=== PATIENT | male | born 1950 | race Caucasian/White ===

== ENCOUNTER 2017-11-25 14:05 | Emergency (ER) | payer MEDICARE ==
[2017-11-25] MEDS ORDERED: Bacitracin Zinc 1 Packet ONE (14:30)
== END 2017-11-25 14:39 | disposition home or self-care (01) ==
LOC: BURERS 14:05
DX: S61.012A Laceration without foreign body of left thumb without damage to nail, initial encounter (principal); I10 Essential (primary) hypertension; F17.210 Nicotine dependence, cigarettes, uncomplicated; W29.8XXA Contact with other powered hand tools and household machinery, initial encounter
CPT/HCPCS: 12001

== ENCOUNTER 2021-12-04 07:55 | Inpatient (IN) | payer MEDICARE, OTHER ==
[2021-12-04] MEDS ORDERED: methylPREDNISolone Sod Succ/PF 125 MG/2 ML VIAL ONE (08:03)
[2021-12-04] MEDS ORDERED: Magnesium 2 GM/50 ML BAG (IN WATER) ONE (08:12)
[2021-12-04] MEDS ORDERED: Albuterol Sulfate 2.5 mg/0.5 ml Neb ONE ×2 (08:12→08:43)
[2021-12-04 08:28] LABS: #Basophils 0.2 thou/uL (0.0-0.2); #Eosinphils 0.3 thou/uL (0.0-0.7); #Lymphocytes 1.6 thou/uL (1.20-3.40); #Monocytes 1.2 thou/uL (0.11-0.59); %Basophils 1.5 % (0.0-1.0); %Lymphocytes 10.1 % (21.0-51.0); %Monocytes 7.7 % (0.0-10.0); %Neutrophils 78.6 % (42.0-75.0); Mean Corpuscular HGB CONC 33.7 g/dL (32.0-36.0); Mean Corpuscular Hemoglobin 33.7 pg (27.0-31.0); Mean Platelet Volume 8.7 fL (7.4-10.4); Platelet Count 224 thou/uL (130-400); RBC Distribution Width 12.3 % (11.5-14.5); Red Blood Cell (RBC) Count 4.74 mill/uL (4.70-6.10); White Blood Cell (WBC) Count 15.3 thou/uL (4.8-10.8)
[2021-12-04 08:36] LABS: ALT (SGPT) 19 U/L (8-55); AST (SGOT) 25 U/L (5-34); Albumin 4.7 g/dL (3.4-4.8); Alkaline Phosphatase 88 U/L (40-110); Anion Gap 17 mmol/L (10-20); BUN (Urea Nitrogen) 10 mg/dL (8.4-25.7); Bilirubin, Total 0.7 mg/dL (0.2-1.2); Calc. Creatinine Clearance 0 mL/min (70-130); Calcium 9.3 mg/dL (7.8-10.44); Carbon Dioxide 23 mmol/L (23-31); Chloride 104 mmol/L (98-107); Globulin 3.6 g/dL (2.4-3.5); Glucose 141 mg/dL (80-115); Potassium 4.5 mmol/L (3.5-5.1); Protein, Total 8.3 g/dL (5.8-8.1); Sodium 139 mmol/L (136-145)
[2021-12-04 08:54] LABS: CKMB 4.6 ng/mL (0-6.6)
[2021-12-04 12:36] LABS: SARS-CoV-2 NAA Rapid Test Not Detected (NotDetected)
[2021-12-04] MEDS ORDERED: Ondansetron ODT 4 MG TAB SL PRN ×2 (13:00→14:58)
[2021-12-04] MEDS ORDERED: Ondansetron PF 4 MG/2 ML Vial IVP PRN (13:00)
[2021-12-04] MEDS: Albuterol Sulfate 2.5 mg/3 ml Neb NEB SCH ×3 (13:51→21:51)
[2021-12-04] MEDS ORDERED: Acetaminophen/Codeine 30-300mg Tablet PO PRN (14:19)
[2021-12-04] MEDS ORDERED: Acetaminophen/Codeine 30-300mg Tablet PO SCH (14:30)
[2021-12-04 14:32] VITALS: BMI 30.8
[2021-12-04] MEDS ORDERED: Senokot S 8.6-50 MG TAB PO PRN (14:58)
[2021-12-04] MEDS ORDERED: Zolpidem Tartrate 5 MG TAB PO PRN (14:58)
[2021-12-04] MEDS ORDERED: Acetaminophen 325 MG TAB PO PRN (14:58)
[2021-12-04] MEDS ORDERED: Albuterol Sulfate 2.5 mg/3 ml Neb NEB PRN (15:49)
[2021-12-04] MEDS: Nicotine 14 MG PATCH TD SCH (15:59)
[2021-12-04] MEDS: Gabapentin 300 MG CAP PO SCH ×3 (16:01→22:36)
[2021-12-04] MEDS ORDERED: Zolpidem Tartrate 5 MG TAB PO SCH (21:00)
[2021-12-04] MEDS: Apixaban 5 MG TAB PO SCH (21:36)
[2021-12-04] MEDS: Lisinopril 10 MG TAB PO SCH (21:37)
[2021-12-04] MEDS: Aspirin Chewable 81 MG TAB PO SCH (21:37)
[2021-12-04] MEDS: Famotidine 20 MG TAB PO SCH (21:38)
[2021-12-04] MEDS: Citalopram 20 MG TAB PO SCH (21:41)
[2021-12-04] MEDS: traZODone HCl 50 MG TAB PO SCH (21:41)
[2021-12-04] MEDS: Atorvastatin Calcium 10 MG TAB PO SCH (21:42)
[2021-12-04] MEDS: methylPREDNISolone Sod Succ 40 MG VIAL IVP SCH (21:42)
[2021-12-04] MEDS ORDERED: Gabapentin 300 MG CAP PO SCH (22:30)
[2021-12-05] MEDS: Albuterol Sulfate 2.5 mg/3 ml Neb NEB SCH ×3 (00:53→09:15)
[2021-12-05] MEDS: Cyclobenzaprine 10 MG TAB PO PRN ×2 (01:17→20:31)
[2021-12-05 06:14] LABS: Anion Gap 15 mmol/L (10-20); BUN (Urea Nitrogen) 14 mg/dL (8.4-25.7); Calc. Creatinine Clearance 114 mL/min (70-130); Carbon Dioxide 25 mmol/L (23-31); Chloride 104 mmol/L (98-107); Glucose 148 mg/dL (80-115); Potassium 4.5 mmol/L (3.5-5.1); Sodium 139 mmol/L (136-145)
[2021-12-05 06:19] LABS: #Basophils 0.1 thou/uL (0.0-0.2); #Lymphocytes 0.8 thou/uL (1.20-3.40); #Monocytes 0.9 thou/uL (0.11-0.59); #Neutrophils 16.9 thou/uL (1.40-6.50); %Basophils 0.4 % (0.0-1.0); %Lymphocytes 4.1 % (21.0-51.0); %Monocytes 4.6 % (0.0-10.0); Hemoglobin 13.8 g/dL (14.0-18.0); Mean Corpuscular HGB CONC 33.4 g/dL (32.0-36.0); Mean Corpuscular Hemoglobin 33.5 pg (27.0-31.0); Mean Platelet Volume 8.4 fL (7.4-10.4); Platelet Count 204 thou/uL (130-400); RBC Distribution Width 12.3 % (11.5-14.5); Red Blood Cell (RBC) Count 4.12 mill/uL (4.70-6.10); White Blood Cell (WBC) Count 18.6 thou/uL (4.8-10.8)
[2021-12-05] MEDS ORDERED: FLU VACC QS2021-22(65YR UP)/PF 240 MCG/0.7 ML SYRINGE IM ONE (09:00)
[2021-12-05] MEDS: Gabapentin 300 MG CAP PO SCH ×3 (09:16→20:28)
[2021-12-05] MEDS: Famotidine 20 MG TAB PO SCH ×2 (09:16→20:27)
[2021-12-05] MEDS: Apixaban 5 MG TAB PO SCH ×2 (09:17→20:27)
[2021-12-05] MEDS: methylPREDNISolone Sod Succ 40 MG VIAL IVP SCH (09:17)
[2021-12-05] MEDS: Acetaminophen/Codeine 30-300mg Tablet PO PRN (09:55)
[2021-12-05] MEDS: Nicotine 14 MG PATCH TD SCH (15:27)
[2021-12-05] MEDS ORDERED: Budesonide 0.5 MG/2 ML NEB NEB SCH (19:00)
[2021-12-05] MEDS: Aspirin Chewable 81 MG TAB PO SCH (20:25)
[2021-12-05] MEDS: Lisinopril 10 MG TAB PO SCH (20:26)
[2021-12-05] MEDS: Atorvastatin Calcium 10 MG TAB PO SCH (20:27)
[2021-12-05] MEDS: traZODone HCl 50 MG TAB PO SCH (20:27)
[2021-12-05] MEDS: Citalopram 20 MG TAB PO SCH (20:28)
[2021-12-05] MEDS: Budesonide 0.5 MG/2 ML NEB NEB SCH (20:32)
[2021-12-06] MEDS: Gabapentin 300 MG CAP PO SCH ×3 (08:49→20:05)
[2021-12-06] MEDS: Apixaban 5 MG TAB PO SCH ×2 (08:49→20:04)
[2021-12-06] MEDS: Famotidine 20 MG TAB PO SCH ×2 (08:51→20:05)
[2021-12-06] MEDS: Acetaminophen/Codeine 30-300mg Tablet PO PRN (08:56)
[2021-12-06] MEDS: Budesonide 0.5 MG/2 ML NEB NEB SCH ×2 (08:57→20:08)
[2021-12-06] MEDS ORDERED: Cefdinir 300 MG CAP PO SCH (10:45)
[2021-12-06] MEDS: Nicotine 14 MG PATCH TD SCH (15:11)
[2021-12-06] MEDS: traZODone HCl 50 MG TAB PO SCH (20:03)
[2021-12-06] MEDS: Cefdinir 300 MG CAP PO SCH (20:03)
[2021-12-06] MEDS: Citalopram 20 MG TAB PO SCH (20:04)
[2021-12-06] MEDS: Cyclobenzaprine 10 MG TAB PO PRN (20:04)
[2021-12-06] MEDS: Aspirin Chewable 81 MG TAB PO SCH (20:04)
[2021-12-06] MEDS: Atorvastatin Calcium 10 MG TAB PO SCH (20:05)
[2021-12-06] MEDS: Lisinopril 10 MG TAB PO SCH (20:05)
[2021-12-07 06:06] VITALS: BP 123/76; TEMP 97.7
[2021-12-07 06:13] LABS: #Basophils 0.1 thou/uL (0.0-0.2); #Eosinphils 0.2 thou/uL (0.0-0.7); #Lymphocytes 1.9 thou/uL (1.20-3.40); #Neutrophils 7.3 thou/uL (1.40-6.50); %Lymphocytes 18.1 % (21.0-51.0); %Neutrophils 69.9 % (42.0-75.0); Hemoglobin 14.7 g/dL (14.0-18.0); Mean Platelet Volume 8.6 fL (7.4-10.4); Platelet Count 206 thou/uL (130-400); RBC Distribution Width 12.7 % (11.5-14.5); Red Blood Cell (RBC) Count 4.34 mill/uL (4.70-6.10); White Blood Cell (WBC) Count 10.5 thou/uL (4.8-10.8)
[2021-12-07 06:19] LABS: Anion Gap 10 mmol/L (10-20); BUN (Urea Nitrogen) 20 mg/dL (8.4-25.7); Calc. Creatinine Clearance 109 mL/min (70-130); Calcium 9.1 mg/dL (7.8-10.44); Carbon Dioxide 32 mmol/L (23-31); Chloride 102 mmol/L (98-107); Glucose 94 mg/dL (80-115); Potassium 4.4 mmol/L (3.5-5.1); Sodium 140 mmol/L (136-145)
[2021-12-07] MEDS ORDERED: Albuterol 200 PUFF (6.7GM INHALER) INH PRN (07:37)
[2021-12-07] MEDS: Gabapentin 300 MG CAP PO SCH (08:46)
[2021-12-07] MEDS: Cefdinir 300 MG CAP PO SCH (08:47)
[2021-12-07] MEDS: Budesonide 0.5 MG/2 ML NEB NEB SCH (08:47)
[2021-12-07] MEDS: Apixaban 5 MG TAB PO SCH (08:47)
[2021-12-07] MEDS: Famotidine 20 MG TAB PO SCH (08:50)
[2021-12-07] MEDS: Acetaminophen/Codeine 30-300mg Tablet PO PRN (09:01)
== END 2021-12-07 11:40 | disposition home or self-care (01) | DRG 206 ==
LOC: BURERS 07:55 → BURMED 12:00
PROVIDERS: ADMIT Family Medicine; ATTEND Family Medicine
DX: J68.0 Bronchitis and pneumonitis due to chemicals, gases, fumes and vapors (principal); J70.5 Respiratory conditions due to smoke inhalation; I25.10 Atherosclerotic heart disease of native coronary artery without angina pectoris; I10 Essential (primary) hypertension; I48.0 Paroxysmal atrial fibrillation; F41.9 Anxiety disorder, unspecified; Z20.822 Contact with and (suspected) exposure to COVID-19; F32.A Depression, unspecified; F17.210 Nicotine dependence, cigarettes, uncomplicated; S06.9X9S Unspecified intracranial injury with loss of consciousness of unspecified duration, sequela; Z79.82 Long term (current) use of aspirin; Z79.01 Long term (current) use of anticoagulants; Z79.899 Other long term (current) drug therapy; Z95.0 Presence of cardiac pacemaker
CPT/HCPCS: 36415; 71045; 71046; 80048; 80053; 82553; 83880; 84484; 85025; 93005; 94640; 94760; J2920; J2930; J3475; J7611; J7620; J7626; U0002

== ENCOUNTER 2021-12-26 09:57 | Emergency (ER) | payer MEDICARE, OTHER ==
[2021-12-26] MEDS ORDERED: methylPREDNISolone Sod Succ/PF 125 MG/2 ML VIAL ONE (10:57)
[2021-12-26 11:04] LABS: #Basophils 0.1 thou/uL (0.0-0.2); #Lymphocytes 0.6 thou/uL (1.20-3.40); #Monocytes 0.7 thou/uL (0.11-0.59); %Lymphocytes 7.9 % (21.0-51.0); Mean Corpuscular HGB CONC 35.1 g/dL (32.0-36.0); Mean Corpuscular Hemoglobin 33.8 pg (27.0-31.0); Mean Corpuscular Volume 96.4 fL (78.0-98.0); Mean Platelet Volume 7.8 fL (7.4-10.4); Platelet Count 199 thou/uL (130-400); RBC Distribution Width 11.8 % (11.5-14.5); Red Blood Cell (RBC) Count 3.83 mill/uL (4.70-6.10); White Blood Cell (WBC) Count 7.3 thou/uL (4.8-10.8)
[2021-12-26 11:20] LABS: ALT (SGPT) 18 U/L (8-55); AST (SGOT) 20 U/L (5-34); Alkaline Phosphatase 69 U/L (40-110); Anion Gap 17 mmol/L (10-20); BUN (Urea Nitrogen) 10 mg/dL (8.4-25.7); Bilirubin, Total 0.4 mg/dL (0.2-1.2); Calc. Creatinine Clearance 0 mL/min (70-130); Calcium 8.7 mg/dL (7.8-10.44); Carbon Dioxide 23 mmol/L (23-31); Chloride 101 mmol/L (98-107); Globulin 2.8 g/dL (2.4-3.5); Glucose 113 mg/dL (80-115); Potassium 4.5 mmol/L (3.5-5.1); Protein, Total 6.8 g/dL (5.8-8.1); Sodium 136 mmol/L (136-145)
[2021-12-26 11:40] LABS: CKMB 2.6 ng/mL (0-6.6)
[2021-12-26] MEDS ORDERED: Furosemide 40 MG/4 ML VIAL ONE (11:55)
[2021-12-26 23:52] LABS: SARS-CoV-2 PCR by NAA Not Detected (NotDetected)
== END 2021-12-26 14:59 | disposition short-term general hospital (02) ==
LOC: BURERS 09:57
DX: I11.0 Hypertensive heart disease with heart failure (principal); I50.9 Heart failure, unspecified; Z20.822 Contact with and (suspected) exposure to COVID-19; E78.5 Hyperlipidemia, unspecified; Z87.891 Personal history of nicotine dependence; Z79.82 Long term (current) use of aspirin; Z79.01 Long term (current) use of anticoagulants; Z79.899 Other long term (current) drug therapy
CPT/HCPCS: 36415; 71046; 80053; 82553; 83605; 83880; 84484; 85025; 93005; 94760; 96374; 96375; J1940; J2930; J7620; U0003; U0005

== ENCOUNTER 2022-12-07 15:53 | Emergency (ER) | payer MEDICARE, OTHER ==
[2022-12-07 16:50] LABS: #Basophils 0.1 thou/uL (0.0-0.2); #Eosinphils 0.2 thou/uL (0.0-0.7); #Lymphocytes 1.5 thou/uL (1.20-3.40); #Monocytes 0.7 thou/uL (0.11-0.59); #Neutrophils 4.8 thou/uL (1.40-6.50); %Basophils 0.9 % (0.0-1.0); %Eosinophils 2.2 % (0.0-10.0); %Lymphocytes 20.1 % (21.0-51.0); %Monocytes 10.1 % (0.0-10.0); %Neutrophils 66.7 % (42.0-75.0); Mean Corpuscular HGB CONC 31.8 g/dL (32.0-36.0); Mean Corpuscular Hemoglobin 27.6 pg (27.0-31.0); Mean Corpuscular Volume 86.5 fl (78.0-98.0); Mean Platelet Volume 6.8 fL (7.4-10.4); Platelet Count 239 10x3/uL (130-400); RBC Distribution Width 15.8 % (11.5-14.5); Red Blood Cell (RBC) Count 4.36 mill/uL (4.70-6.10); White Blood Cell (WBC) Count 7.3 10x3/uL (4.8-10.8)
[2022-12-07 17:08] LABS: ALT (SGPT) 15 U/L (8-55); AST (SGOT) 14 U/L (5-34); Albumin 4.2 g/dL (3.4-4.8); Alkaline Phosphatase 77 U/L (40-110); Anion Gap 13 mmol/L (10-20); BUN (Urea Nitrogen) 15 mg/dL (8.4-25.7); Bilirubin, Total 0.4 mg/dL (0.2-1.2); Calc. Creatinine Clearance 0 mL/min (70-130); Calcium 8.9 mg/dL (7.8-10.44); Carbon Dioxide 23 mmol/L (23-31); Chloride 107 mmol/L (98-107); Estimated GFR 77; Globulin 2.6 g/dL (2.4-3.5); Glucose 99 mg/dL (80-115); Protein, Total 6.8 g/dL (5.8-8.1); Sodium 139 mmol/L (136-145)
[2022-12-07] MEDS ORDERED: Aspirin Chewable 81 MG TAB ONE (17:21)
[2022-12-07 17:26] LABS: CKMB 2.8 ng/mL (0-6.6)
[2022-12-07] MEDS ORDERED: Doxycycline 100 MG CAP ONE (17:44)
[2022-12-07] MEDS ORDERED: Diltiazem 125 MG/25 ML ONE (17:48)
== END 2022-12-07 20:55 | disposition short-term general hospital (02) ==
LOC: BURERS 15:53
DX: I48.20 Chronic atrial fibrillation, unspecified (principal); J22 Unspecified acute lower respiratory infection; I11.0 Hypertensive heart disease with heart failure; I50.9 Heart failure, unspecified; J44.9 Chronic obstructive pulmonary disease, unspecified; E78.5 Hyperlipidemia, unspecified; Z87.891 Personal history of nicotine dependence; Z79.82 Long term (current) use of aspirin; Z79.01 Long term (current) use of anticoagulants; Z79.899 Other long term (current) drug therapy
CPT/HCPCS: 36415; 71045; 80053; 82553; 83605; 83880; 84484; 85025; 93005; 96365; 96366; 96376

== ENCOUNTER 2023-06-02 12:55 | Emergency (ER) | payer MEDICARE, OTHER ==
[~2023-06-02 12:55] MED LIST: Iopamidol 370 76% 100 ML VIAL ONE
[2023-06-02] MEDS ORDERED: dilTIAZem 25 MG/5 ML VIAL ONE (13:10)
[2023-06-02 13:20] LABS: Hemoglobin 12.7 g/dL (14.0-18.0); Red Blood Cell (RBC) Count 5.11 mill/uL (4.70-6.10); White Blood Cell (WBC) Count 5.1 10x3/uL (4.8-10.8)
[2023-06-02 13:21] LABS: #Eosinphils 0.1 thou/uL (0.0-0.7); #Monocytes 0.6 thou/uL (0.11-0.59); #Neutrophils 3.4 thou/uL (1.40-6.50); %Basophils 0.6 % (0.0-1.0); %Eosinophils 1.2 % (0.0-10.0); %Monocytes 12.8 % (0.0-10.0); %Neutrophils 65.5 % (42.0-75.0); MDiff Complete? YES; Manual Diff?? NO; Mean Corpuscular Hemoglobin 24.9 pg (27.0-31.0); Mean Corpuscular Volume 80.2 fl (78.0-98.0); Mean Platelet Volume 6.2 fL (7.4-10.4); Platelet Count 223 10x3/uL (130-400); RBC Distribution Width 16.1 % (11.5-14.5)
[2023-06-02 13:22] LABS: Anisocytosis SLIGHT = 6-15 cells (100X) (0-5/hpf); Ovalocytes SLIGHT = 2-5 cells (100X) (0-1/hpf); Poikilocytosis SLIGHT = 6-15 cells (100X) (0-5/hpf)
[2023-06-02 14:42] LABS: INR-International Normal Ratio 1.1; Prothrombin Time 14.9 sec (12.0-14.7)
[2023-06-02 14:43] LABS: PTT 31.9 sec (22.9-36.1)
[2023-06-02 17:22] LABS: ALT (SGPT) 19 U/L (8-55); AST (SGOT) 19 U/L (5-34); Albumin 4.5 g/dL (3.4-4.8); Alkaline Phosphatase 105 U/L (40-110); Anion Gap 17 mmol/L (10-20); BUN (Urea Nitrogen) 13 mg/dL (8.4-25.7); Bilirubin, Total 0.4 mg/dL (0.2-1.2); Calc. Creatinine Clearance 0 mL/min (70-130); Calcium 9.1 mg/dL (7.8-10.44); Carbon Dioxide 23 mmol/L (23-31); Chloride 102 mmol/L (98-107); Estimated GFR 55; Glucose 127 mg/dL (80-115); Protein, Total 7.5 g/dL (5.8-8.1); Sodium 138 mmol/L (136-145); Troponin I 0.047 ng/mL (< 0.028)
== END 2023-06-02 17:07 | disposition short-term general hospital (02) ==
LOC: BURERS 12:55
DX: R07.9 Chest pain, unspecified (principal); G45.9 Transient cerebral ischemic attack, unspecified; E78.5 Hyperlipidemia, unspecified; J44.9 Chronic obstructive pulmonary disease, unspecified; I11.0 Hypertensive heart disease with heart failure; I50.9 Heart failure, unspecified; Z87.891 Personal history of nicotine dependence; Z79.01 Long term (current) use of anticoagulants; Z79.82 Long term (current) use of aspirin
CPT/HCPCS: 70450; 70496; 70498; 71045; 80053; 83880; 84484; 85025; 85610; 85730; 93005; 96374; Q9967